=== PATIENT | male | born 1995 | race Caucasian/White ===

== ENCOUNTER 2025-04-09 22:49 | Emergency (ER) | payer SELFPAY ==
[2025-04-09 22:53] VITALS: BP 119/77; PULSE 76; RESP 17; TEMP 36.9; O2SAT 98
--- NOTE | 2025-04-09 23:09 | EDNOTE_ITS ---
ED Syncope RME/HPI General Chief Complaint: Weakness Stated Complaint: WEAKNESS, DIZZINESS Time Seen by Provider: 04/09/25 23:13 Arrival date/time: 04/09/25 22:49 RME / HPI RME / HPI narrative: This section includes all my notes and documentations, including HPI, PE, and ED course. Geovany Hawkins MD HPI: 30yo male who is visiting from [facility] presents to the ED for a chief complaint of near syncope about an hour ago. Patient has [place]. No other complaints reported. ROS: All negative except as documented in HPI. Physical Exam: General:? Alert and oriented.? No acute distress.?? Eyes:? Conjunctivae and lids clear.? EOMI.? PERRL. ENT:? No nasal congestion.? Neck:? Supple.? No carotid bruit.? No JVD.?? Heart:? RRR.? Lungs:? No respiratory distress.? Good air movement.? No rhonchi, wheezing, rales.?? Abdomen:? Soft and nontender.? Normal bowel sounds.? No distension.? No rebound or guarding.?? Back:? No CVA tenderness.?? Legs:? No clubbing, cyanosis, edema.? Skin:? Warm and dry.?? Neuro:? Alert and oriented X 3.? Cranial Nerves II-XII grossly intact.? No peripheral motor deficits. I reviewed EMS notes. I reviewed all diagnostic test results. My interpretation of the EKG is NSR with no ST-T changes. My interpretation of the chest x-ray is NAD. Blood tests and urine tests are unremarkable. At this point, diagnoses include heat exhaustion. Treatment here included NS. Significant improvement noted. Recommended supportive care. Based on my best medical judgment, made decision no further evaluation or treatment indicated at this time. Patient understands and agrees to the discharge instructions customized and printed, see below. Discharge Instructions from Dr. Hawkins printed for you: 1. After evaluation, your symptoms were due to heat exhaustion. There is no immediately life-threatening condition, such as heart attack. 2. Avoid prolonged exposure to sun and heat. 3. For good hydration, increase oral fluid and maintain clear urine. If dark or yellow, increase oral fluid. Some good choices are water (but not only water because it will cause electrolyte abnormalities), sports drinks like Gatorade (with less sugar content), coconut water, chicken stock, and other fluid with electrolytes (like Pedialyte). Zofran for nausea/vomiting. 4. See a private doctor on 04/12/2025 if not completely better. 5. Seek immediate medical care with worsening or with any concerns. Geovany Hawkins MD Related Data Previous Rx's ?Medication ?Instructions ?Recorded ondansetron 4 mg disintegrating 4 mg PO TID PRN nausea and 04/10/25 tablet vomiting 30 days #10 tabs Review of Systems Review of Systems Systems Reviewed: All systems reviewed, normal except as documented ED Exam Narrative Physical exam: As noted in HPI. Course Quality Measures none Orders Category Date Time Status EKG (ED ONLY) *Do not use* NOW Care 04/09/25 23:14 Completed Saline [Insert IV] NOW Care 04/09/25 23:13 Completed EKG (ED Only) Stat Exams 04/09/25 23:14 Draft XR chest 1V portable Stat Exams 04/09/25 23:14 Completed Alcohol, Blood Medical Stat Lab 04/09/25 23:45 Completed Beta Hydroxybutyrate Stat Lab 04/09/25 23:45 Completed Bilirubin,Direct Stat Lab 04/09/25 23:45 Completed CBC Stat Lab 04/09/25 23:45 Completed CK [Creatine Kinase] Stat Lab 04/09/25 23:45 Completed CMP [Comprehensive Metabolic Panel] Stat Lab 04/09/25 23:45 Completed Drug Screen,Urine Stat Lab 04/09/25 23:58 Completed Free T4 (Free Thyroxine) Stat Lab 04/09/25 23:45 Completed Magnesium Stat Lab 04/09/25 23:45 Completed TSH [Thyroid Stimulating Hormone] Stat Lab 04/09/25 23:45 Completed Troponin I Stat Lab 04/09/25 23:45 Completed UA, C/S IF [Urinalysis, C/S if Indicated] Stat Lab 04/09/25 23:54 Completed Sodium Chloride 0.9% 1000 ml [Ns] 1,000 ml Med 04/09/25 23:13 Discontinued IV 999 mls/hr Sodium Chloride 0.9% 1000 ml [Ns] 1,000 ml Med 04/10/25 00:21 Discontinued IV 999 mls/hr Vital Signs Vital signs: Vital Signs Temperature 98.4 F 04/09/25 22:53 Pulse Rate 76 04/09/25 22:53 Respiratory Rate 17 04/09/25 22:53 Blood Pressure 119/77 04/09/25 22:53 Pulse Oximetry (%) 98 04/09/25 22:53 Oxygen Delivery Method Room Air 04/09/25 22:53 Syncope MDM Narrative MDM Narrative:: 30yo male who is visiting from [facility] presents to the ED for a chief complaint of near syncope. Patient has been doing a lot of hiking in the mountains today. Patient felt dizzy and like he was going to pass out. No other complaints reported. Patient data External records reviewed:: [facility] previous records (Per chart review, patient has no previous ED visits or admissions to this facility.) and EMS form Clinical information provided by:: patient Social determinants that could affect healthcare access:: none Patient has the following chronic illnesses:: none How is presenting disease/condition affected by chronic disease/condition?: no chronic disease Evaluation data The following diagnostics were reviewed and interpreted by me:: lab results, radiology exam(s) and EKG tracing(s) (My interpretation of the EKG: NSR (70 bpm) with no ST-T changes. Geovany Hawkins MD) Lab and/or radiology exams considered but not ordered:: none Interpretation Summary: I reviewed all diagnostic test results. My interpretation of the EKG is NSR with no ST-T changes. My interpretation of the chest x-ray is NAD. Blood tests and urine tests are unremarkable. Medications / Prescriptions Medications or Prescriptions considered but not ordered:: none Medication administrations:: Medication Administration History Discontinued Medications Sodium Chloride (Ns) 1,000 mls @ 999 mls/hr IV .Q1H1M ONE Stop: 04/10/25 00:13 Last Infusion: 04/10/25 01:47 Dose: Infused Documented By: Admin: 04/09/25 23:49 Dose: 999 mls/hr Documented By: EE Sodium Chloride (Ns) 1,000 mls @ 999 mls/hr IV .Q1H1M ONE Stop: 04/10/25 01:21 Last Infusion: 04/10/25 01:47 Dose: Infused Documented By: Admin: 04/10/25 00:35 Dose: 999 mls/hr Documented By: EE IV fluid Consultations Consultation(s) initiated? (list below): No Diagnosis Syncope Differential Diagnosis: syncope due to orthostatic hypotension, vasovagal syncope, complete atrioventricular block and dehydration (Electrolyte normalities, heat related illness) Most likely diagnosis given after review of the tests above:: Heat exhaustion Admission Indicated Admission indicated?: not indicated Explain why admission is indicated or not indicated:: With significant improvement and no condition needing emergent intervention, there was no indication for admission. Admission Request Was there a request for admission?: No Disposition Plan Disposition Plan: Discharge Discharge Attestation Discharge Attestation: The patient and all family members were given an opportunity to ask questions and understood the discharge instructions. Discharge instructions specifically effects, indications for sooner follow up or return to the emergency department, and the expected course of current diagnosis. Patient condition: Stable Discharge Plan Plan Patient Disposition: HOME (Self Care) Prescriptions/Referrals Prescriptions/Med Rec: New ondansetron 4 mg tablet,disintegrating 4 mg PO TID PRN (Reason: nausea and vomiting) 30 Days Qty: 10 0RF Referrals: No Primary/Family,Physician [Primary Care Provider] - In 1 week Problem List Clinical Impression: Heat exhaustion Patient/Caregiver Discharge Instructions Discharge Activity: activity as tolerated Education Materials: ED Heat Exhaustion Additional Instructions: Discharge Instructions from Dr. Hawkins printed for you: 1. After evaluation, your symptoms were due to heat exhaustion. There is no immediately life-threatening condition, such as heart attack. 2. Avoid prolonged exposure to sun and heat. 3. For good hydration, increase oral fluid and maintain clear urine. If dark or yellow, increase oral fluid. Some good choices are water (but not only water because it will cause electrolyte abnormalities), sports drinks like Gatorade (with less sugar content), coconut water, chicken stock, and other fluid with electrolytes (like Pedialyte). Zofran for nausea/vomiting. 4. See a private doctor on 04/12/2025 if not completely better. 5. Seek immediate medical care with worsening or with any concerns. Print Language: Scottish Stand Alone Forms: [place] Award Info., Patient Portal Info Letter
--- NOTE | 2025-04-09 23:14 | EKG_ITS ---
[facility] Test Date: 2025-04-09 Pat Name: MARYURI BOONE Department: Room: - Gender: Male Safety Risk Lead: : 1995 Requested By: Geovany Lui Order Number: [id number] Reading MD: Geovany Lui Measurements Intervals [place] Rate: 70 P: 55 NM: 127 QRS: 92 QRSD: 90 T: 72 QT: 385 QTc: 417 Interpretive Statements SINUS RHYTHM BORDERLINE RIGHT AXIS DEVIATION [QRS AXIS > 90] No previous ECG available for comparison /[id number]/[email or web address]/[id number].pdf
--- NOTE | 2025-04-09 23:14 | XR_ITS ---
Examination: PA chest single view TECHNIQUE: Upright PA chest single view Date and time: April 09, 2025 at 20 3:00 PM INDICATIONS: Shortness of breath today. FINDINGS: Normal heart size. Lungs are clear. The osseous structures are intact IMPRESSION: No active disease
[2025-04-09 23:28] VITALS: PULSE 92; RESP 16; O2SAT 98
[2025-04-09] MEDS: SODIUM CHLORIDE 0.9% 1000 ML 1,000 ML 999 ML IV (23:49)
[2025-04-09 23:50] VITALS: BP 123/78; PULSE 77; RESP 24; O2SAT 98; BMI 22.1
[2025-04-10 00:04] LABS: Collection Type, Urine Clean Catch; RBC,Urine 0 /hpf (0-3); Squamous Epithelial Cell,Urine 0 /hpf (0-5)
[2025-04-10 00:07] LABS: Basophils # (Auto) 0.1 Thou/mm3 (0.0-0.2); Basophils % (Auto) 1 % (0-2.5); Eosinophils # (Auto) 0.2 Thou/mm3 (0.0-0.5); Eosinophils % (Auto) 3 % (0-10); Hematocrit 43.2 % (41.0-53.0); Hemoglobin 15.1 g/dL (13.5-16.0); Immature Granulocytes Auto 0.02 Thou/mm3 (0.00-0.00); Lymphocytes # (Auto) 1.7 Thou/mm3 (1.0-4.8); Lymphocytes % (Auto) 22 % (10-50); Mean Corpuscular HGB Conc 35.0 g/dl (31.0-37.0); Mean Corpuscular Hemoglobin 29.4 pg (25.0-35.0); Mean Corpuscular Volume 84 fL (80-100); Monocytes # (Auto) 0.7 Thou/mm3 (0.0-0.8); Monocytes % (Auto) 8 % (0-12); Neutrophils # (Auto) 5.1 Thou/mm3 (1.8-7.7); Neutrophils % (Auto) 66 % (37-80); Nucleated Red Blood Cell # 0.00 Thou/mm3 (0.00-0.00); Nucleated Red Blood Cell % 0 /100 WBC (0); Platelet Count 207 Thou/mm3 (140-440); RDW Standard Deviation 36.3 fL (35.1-43.9); Red Blood Count 5.13 Miln/mm3 (4.50-5.90); White Blood Count 7.8 Thou/mm3 (3.8-10.6)
[2025-04-10 00:19] LABS: Beta Hydroxybutyrate 0.1 mmol/L (<0.6)
[2025-04-10 00:19] LABS: Amorphous Crystals,Urine Present (Absent); Bacteria,Urine Rare; Bilirubin,Urine Negative (Negative); Blood,Urine Negative (Negative); Clarity,Urine Clear (Clear/Hazy); Color,Urine Lt-Yellow (Lt Yel-Yel); Culture Indicated,Urine Not Indicated; Glucose, Urine Negative (Negative); Ketones,Urine Negative (Negative); Leukocyte Esterase,Urine Negative (Negative); Nitrite,Urine Negative (Negative); PH,Urine 7.0 (5.0-7.0); Protein,Urine Negative (Neg - Trace); Specific Gravity,Urine 1.009 (1.001-1.035); Urobilinogen,Urine Negative mg/dL (0.0-1.0); WBC,Urine < 1 /hpf (0-5)
[2025-04-10 00:23] LABS: Amphetamine/Methamp Scrn,U Negative (Negative); Barbiturate Screen,Urine Negative (Negative); Benzodiazepines Screen,Urine Negative (Negative); Benzoylecgonine Screen, Ur Negative (Negative); Fentanyl Screen,Urine Negative (Negative); Opiate Screen,Urine Negative (Negative); THC Screen,Urine Negative (Negative)
[2025-04-10] MEDS: SODIUM CHLORIDE 0.9% 1000 ML 1,000 ML 999 ML IV (00:35)
[2025-04-10 00:42] LABS: Alanine Aminotransferase 15 U/L (10-49); Albumin, Serum 4.7 gm/dL (3.5-5.0); Albumin/Globulin Ratio 2.0 (1.2-2.2); Alcohol, Blood Medical < 3.0 mg/dL (0-10.0); Alkaline Phosphatase 90 U/L (46-116); Anion Gap 7 (7-16); Aspartate Amino Transferase 18 U/L (0-34); BUN/Creatinine Ratio 8 Ratio (12-20); Bilirubin,Direct 0.4 mg/dL (0.0-0.3); Bilirubin,Total 1.2 mg/dL (0.3-1.2); Blood Urea Nitrogen 7 mg/dL (9-23); Calcium 9.2 mg/dL (8.3-10.6); Calcium (Corrected) 9.2 mg/dL (8.5-10.1); Carbon Dioxide 29.0 mMol/L (20.0-31.0); Chloride 106 mMol/L (98-107); Creatine Kinase 52 U/L (34-171); Creatinine (Component) 0.9 mg/dL (0.6-1.3); Estimated Creatinine Clearance 134.6 mL/min (>60); Free T4 (Free Thyroxine) 1.44 ng/dL (0.89-1.76); Globulin 2.3 gm/dL (2.3-3.5); Glucose 125 mg/dL (74-106); Magnesium 1.7 mg/dL (1.6-2.6); Osmolality,Calculated 282 (275-295); Potassium 3.7 mMol/L (3.4-5.1); Sodium 142 mMol/L (136-145); Thyroid Stimulating Hormone 5.24 uIU/mL (0.55-4.78); Total Protein 7.0 gm/dL (5.7-8.2); Troponin I < 0.002 ng/mL (0.0-0.045); eGFR > 60 See Note
[2025-04-10 01:54] VITALS: BP 113/75; PULSE 67; RESP 15; TEMP 37.1; O2SAT 99
== END 2025-04-10 02:12 | disposition home or self-care (01) ==
PROVIDERS: Emergency Provider Emergency Medicine
DX: R55 Syncope and collapse (principal); X30.XXXA Exposure to excessive natural heat, initial encounter; R06.02 Shortness of breath
CPT/HCPCS: 36415; 71045; 80053; 80307; 80320; 81001; 82010; 82248; 82550; 83735; 84439; 84443; 84484; 85025; 93005; 96360; 96361; 99284; J7030; G0480